=== PATIENT | female | born 1990 | race Caucasian/White ===

== ENCOUNTER 2020-12-12 21:04 | Emergency (ER) | payer OTHER ==
[2020-12-13] MEDS ORDERED: PREDNISONE 50 M50 MG PO (01:03)
[2020-12-13] MEDS ORDERED: VENTOLIN HFA 66.7 GM INH (01:03)
[2020-12-13] MEDS ORDERED: TESSALON PERLE100 MG PO (01:03)
== END 2020-12-13 02:41 | disposition home or self-care (01) ==
LOC: ER1 21:04
DX: U07.1 COVID-19 (principal); Z88.1 Allergy status to other antibiotic agents; Z79.899 Other long term (current) drug therapy
CPT/HCPCS: 0240U; 71046; 87081; 87880; 99285